=== PATIENT | male | born 1975 | race Caucasian/White ===

== ENCOUNTER → 2017-02-05 | Outpatient (CLI) | payer OTHER ==
[~2017-02-05] MED LIST: AMOXIL500 MG PO; BACTROBAN2% TP; KEFLEX 500MG.500 MG PO; MEDROL 4MG. DOSE4 MG PO; NOMEDS; PHENERGAN 25MG.25 M1 PO
[2017-02-06 06:37] LABS: HBsAg Screen Negative (Negative); HIV Screen 4th Generation wRfx Non Reactive (Non Reactive); Hep A Ab, IgM Negative (Negative); Hep B Core Ab, IgM Negative (Negative); Hep C Virus Ab <0.1 (0.0-0.9)
== END ==
LOC: LAB 13:04
PROVIDERS: Nurse Practitioner
DX: Z02.5 Encounter for examination for participation in sport (principal)
CPT/HCPCS: G0432

== ENCOUNTER 2017-02-19 17:43 | Emergency (ER) | payer OTHER ==
[~2017-02-19] VITALS: Ht 167.6 cm; Wt 86.6 kg
[~2017-02-19 17:43] MED LIST changes: -BACTROBAN2% TP; -KEFLEX 500MG.500 MG PO
--- OUTSIDE RECORDS SUMMARY | 2017-02-19 17:49 | External Medical Summary Rpt | CCD ---
Author Author [employer] Organization [employer] Address Unknown Phone Unavailable Purpose Continuity of Care Document - through 2016
--- OUTSIDE RECORDS SUMMARY | 2017-02-19 17:49 | External Medical Summary Rpt | CCD ---
Author Author , [facility] Organization [facility] Address Unknown Phone [email or web address] Purpose Continuity of Care Document - 02-05-2017 through 2016 Results Labs Lab Lab Date Result Refere Interp Status Commen Order Detail nces retati t Range on Hepatitis B profile (02-05-2017 13:06) HBcAb Negativ Negativ complet IgM 017 e e ed 13:06 Negativ e L Serum < 0.1 0.0-0.9 complet or 017 ed plasma 13:06 hepatit is C virus antibo Comment: INFCE Result Units: s/co ratio Comment: Negative: < 0.8 Comment: Indeterminate: 0.8 - 0.9 Comment: Positive: > 0.9 Comment: Comment: The CDC recommends that a positive HCV antibody result Comment: be followed up with a HCV Nucleic Acid Amplification Comment: test (002036). Serum Negativ Negativ complet hepatit 017 e e ed is B 13:06 Negativ virus e L surface antigen Hepatit Negativ Negativ complet is A 017 e e ed IgM 13:06 Negativ e L
--- OUTSIDE RECORDS SUMMARY | 2017-02-19 17:49 | External Medical Summary Rpt | CCD ---
Author Author , [facility] Organization [facility] Address Unknown Phone [email or web address] Purpose Continuity of Care Document - 02-05-2017 [...] a HCV Nucleic Acid Amplification Comment: test ([id number]). Serum Negativ Negativ complet hepatit 017 e e ed is B 13:06 Negativ virus e L surface antigen Hepatit Negativ Negativ complet is A 017 e e ed IgM 13:06 Negativ e L
--- OUTSIDE RECORDS SUMMARY | 2017-02-19 17:50 | External Medical Summary Rpt | CCD ---
Demographics Preferred Language Bengali Marital Status Unknown Uatsdin Affiliation Unknown Race Unknown Ethnic Group Unknown Author Author , [facility] Organization [facility] Address Unknown Phone Immunization Unable to retrieve immunization data due to connection failure with Immunization Registry. Please try again later.
--- OUTSIDE RECORDS SUMMARY | 2017-02-19 17:50 | External Medical Summary Rpt ---
Author Author [employer] Armas, [employer] Organization [employer] Address Unknown Phone Unavailable
--- OUTSIDE RECORDS SUMMARY | 2017-02-19 17:50 | External Medical Summary Rpt | CCD ---
Demographics Preferred Language Armenian Marital Status Unknown Congregation Affiliation Unknown Race Unknown Ethnic Group Unknown Author Author , [facility] Organization [facility] Address Unknown Phone Immunization Unable to retrieve immunization data due to connection failure with Immunization Registry. Please try again later.
[2017-02-19] MEDS ORDERED: KEFLEX 500MG.500 MG PO (18:00)
[2017-02-19] MEDS ORDERED: BACTROBAN2% TP (18:00)
--- NOTE | 2017-02-19 18:01 | Urgent Treatment Center Report ---
History of Present Issue Date/Time Seen by Provider 02/19/17 7210 Visit Reason Pt arrived: Presenting Problem: Location if Accident: Onset of symptoms date/time:/ or onset unknown for: Have you (or family members/close friends) recently traveled outside the [place]? If Yes, where/when: Have you had exposure to infectious disease within the past month? TB? Other? Specify: Patient state that he is not sure if he was bitten by something or if he had a small abcess area on his right chest States that he noticed that he had a small red raised area on the right side of his chest area State that he has been cleaning the area good and putting witch helder and drying cream on it State that he noticed 2 small "dot" like area on the bump and not sure if it may have been where something had bitten him States that he has never got puss from the area state that only clear liquid, denies itching, denies fever mild redness only ALLERGIES Coded Allergies: No Known Drug Allergies (NKDA) (07/01/11) Home Medications Active Scripts Promethazine Hydrochloride (Phenergan 25MG Tab) 25 MG PO Q6H PRN #12 Prov: 07/01/11 Reported Medications No Home Medications (NO HOME MEDICATIONS) History Medical History General CAD? No Angina: No HI: No Hypertension? No Hyperlipidemia? No CHF? No DVT? No PE? No COPD? No Asthma? No Anemia? No GERD? No Gastric ulcers? No GI Bleed? No Hernia? No Thyroid Problems? No Hypothyroidism? No CVA? No Seizures? No Diabetes? No Renal Insuffiency? No UTI? No Stones? No BPH? No GB Disease: No Nephritic Syndrome? No Asplenia? No Hepatitis? No Sickle Cell Disease? No Arthritis? No Migraines? No Cataracts? No Glaucoma? No MRSA? No HIV? No TB? No Anxiety? No Depression? No Cancer? No More? No Immunization HX DT/Tetanus UNKNOWN Surgical Hx Previous Surgery?N Social History Alcohol Alcohol: No Review of Systems All Other Systems Reviewed and Negative Skin other Physical Exam Vital Signs Vital Signs Date Time Temp Pulse Resp B/P Pulse O2 O2 Flow FiO2 Ox Delivery Rate 02/19 1801 98.1 85 16 142/85 98 General Appearance normal appearance, WD/WN, no apparent distress Respiratory Status Yes: trachea midline, chest symmetrical, non tender chest. No: respiratory distress. Cardiovascular normal exam, regular rate/rhythm, no peripheral edema Neurologic alert, normal exam, oriented x 3 Skin intact, small dime sized raised area, On right side of chest, no drainage mild redness no warmth to area Medical Decision Making LABS/Meds/Orders Pt receiving controlled substance in ED? No Results/Orders Orders Procedure Date/time Status CULTURE, WOUND 02/20 1756 Active Departure Departure Time of Disposition 180 Disposition DC Home or Self Care(routine) Clinical Impression Primary Impression: Skin problem Condition STABLE Patient Instructions DI for Insect Bites and Stings, Insect Bites and Stings ( Alternative Therapy) Additional Instructions Keep area clean and dry Use cream and take medication as prescribed Return if needed Follow up with family doctor Discharge Counseling Counseled pt/family regarding diagnosis, medications/RX, home care, follow up needs Prescriptions Current Visit Scripts MUPIROCIN 2% (Bactroban Oint) 1 BLAIR TP BID #1 TUBE CEPHALEXIN (Keflex 500MG Capsule) 500 MG PO Q6H #40 CAP at 1808
[2017-02-19 18:09] VITALS: BP 142/85
== END 2017-02-19 18:12 | disposition home or self-care (01) ==
LOC: UTC 17:43
DX: R21 Rash and other nonspecific skin eruption (principal)